=== PATIENT | female | born 1950 | race Caucasian/White ===

== ENCOUNTER → 2023-09-05 | Outpatient (CLI) | payer MEDICARE, OTHER, SELFPAY ==
[2023-09-05 11:10] LABS: BNP,B-Type NATRIURETIC PEPTIDE 208.4 pg/mL (0-100)
== END | disposition home or self-care (01) ==
LOC: LABSPEC 10:52
PROVIDERS: PCP Family Medicine; Referring Provider Registered Nurse; Visit Provider Registered Nurse
DX: R79.89 Other specified abnormal findings of blood chemistry (principal); R06.00 Dyspnea, unspecified
CPT/HCPCS: 83880